=== PATIENT | female | born 1970 | race Native Hawaiian/Other Pacific Islander ===

== ENCOUNTER 2018-09-14 16:46 | Outpatient (CLI) | payer BC ==
[~2018-09-14 16:46] MED LIST: BYDUREON2 MG SC; CYCL10TA35 PO; GLIM2TAB PO; PANT40TA PO; TRAM50TA PO
== END 2018-09-14 21:49 | disposition home or self-care (01) ==
LOC: LABW 16:46
DX: R10.9 Unspecified abdominal pain (principal); R19.7 Diarrhea, unspecified; R11.2 Nausea with vomiting, unspecified
CPT/HCPCS: 87324; 87338; 87449; 87507

== ENCOUNTER 2018-09-27 13:00 | Outpatient (CLI) | payer BC ==
[~2018-09-27] VITALS: Ht 165.1 cm; Wt 154.7 kg
[2018-09-27 13:10] VITALS: BP 144/69; TEMP 98.2
== END 2018-09-27 15:33 | disposition home or self-care (01) ==
LOC: INF 13:00
DX: E88.09 Other disorders of plasma-protein metabolism, not elsewhere classified (principal)
CPT/HCPCS: 96365; 96366; P9047

== ENCOUNTER 2018-09-28 10:52 | Outpatient (CLI) | payer BC ==
[~2018-09-28] VITALS: Ht 165.1 cm; Wt 154.7 kg
[2018-09-28 10:55] VITALS: BP 129/57; TEMP 98.8
== END 2018-09-28 12:30 | disposition home or self-care (01) ==
LOC: INF 10:52
DX: E88.09 Other disorders of plasma-protein metabolism, not elsewhere classified (principal)
CPT/HCPCS: 96365; P9047

== ENCOUNTER 2019-01-14 10:54 | Outpatient (CLI) | payer BC | END 2019-01-14 20:52 | disposition home or self-care (01) | LOC: US 10:54 | DX: M79.641 Pain in right hand (principal); R60.9 Edema, unspecified ==

== ENCOUNTER 2020-06-18 10:22 | Outpatient (CLI) | payer BC | END 2020-06-18 20:26 | disposition home or self-care (01) | LOC: US 10:22 | PROVIDERS: ATTEND Nurse Practitioner Family | DX: R18.8 Other ascites (principal) | CPT/HCPCS: 36415; 85610; 85730 ==

== ENCOUNTER 2020-07-09 09:23 | Outpatient (CLI) | payer BC ==
[~2020-07-09] VITALS: Ht 165.1 cm; Wt 163.7 kg
[2020-07-09 09:48] LABS: PLATELET COUNT 59 K/uL (152-353)
[2020-07-09 09:59] LABS: POTASSIUM 4.2 mmol/L (3.6-5.2)
[2020-07-09 10:06] LABS: PARTIAL THROMBOPLASTIN TIME 24.2 SECONDS (24.5-33.6)
== END 2020-07-09 22:00 | disposition home or self-care (01) ==
LOC: US 09:23 → LAB 09:23 → INF 09:23 → US 11:00 → INF 22:00
PROVIDERS: Internal Medicine Gastroenterology; ATTEND Internal Medicine
DX: R18.8 Other ascites (principal); K74.69 Other cirrhosis of liver
CPT/HCPCS: 36415; 80053; 85027; 85610; 85730; 96365; 96366; P9047

== ENCOUNTER 2020-08-02 15:13 | Outpatient (CLI) | payer BC ==
[2020-08-15 20:41] LABS: PLATELET COUNT 50 K/uL (152-353)
[2020-08-15 20:43] LABS: POTASSIUM 3.8 mmol/L (3.6-5.2)
== END 2020-08-02 16:15 | disposition home or self-care (01) ==
LOC: LABW 15:13
PROVIDERS: ATTEND Internal Medicine
DX: I12.9 Hypertensive chronic kidney disease with stage 1 through stage 4 chronic kidney disease, or unspecified chronic kidney disease (principal); N18.9 Chronic kidney disease, unspecified; E11.9 Type 2 diabetes mellitus without complications; E78.49 Other hyperlipidemia
CPT/HCPCS: 36415; 80061; 80069; 82043; 82570; 83036; 85027

== ENCOUNTER 2020-08-10 16:44 | Outpatient (CLI) | payer BC ==
[2020-08-18 10:50] LABS: PLATELET COUNT 49 K/uL (152-353)
[2020-08-18 11:10] LABS: POTASSIUM 3.9 mmol/L (3.6-5.2)
== END 2020-08-10 23:59 | disposition home or self-care (01) ==
LOC: LABW 16:44
PROVIDERS: ATTEND Internal Medicine Gastroenterology
DX: K74.69 Other cirrhosis of liver (principal); K75.81 Nonalcoholic steatohepatitis (NASH); R18.8 Other ascites
CPT/HCPCS: 36415; 80053; 82140; 85027

== ENCOUNTER 2020-08-27 16:42 | Emergency (ER) | payer BC ==
[~2020-08-27] VITALS: Ht 165.1 cm; Wt 154.2 kg
[2020-08-27 17:37] LABS: PLATELET COUNT 78 K/uL (152-353)
[2020-08-27 17:49] LABS: POTASSIUM 4.6 mmol/L (3.6-5.2); SODIUM 138 mmol/L (136-145)
[2020-08-27 17:58] LABS: PARTIAL THROMBOPLASTIN TIME 29.4 SECONDS (24.5-33.6)
[2020-08-27 21:43] VITALS: BP 120/51; TEMP 99
== END 2020-08-28 00:55 | disposition short-term general hospital (02) ==
LOC: ED 16:42
PROVIDERS: Emergency Medicine
DX: K74.69 Other cirrhosis of liver (principal); R18.8 Other ascites; N28.9 Disorder of kidney and ureter, unspecified; U07.1 COVID-19; Z98.890 Other specified postprocedural states
CPT/HCPCS: 36415; 80053; 82140; 82150; 83690; 83880; 84484; 85027; 85610; 85730; 87635; 93005; 96374; 96375; 96376; 99284; J2270; J2405; U0003

== ENCOUNTER 2020-09-18 13:04 | Outpatient (CLI) | payer BC | END 2020-09-18 20:01 | disposition home or self-care (01) | LOC: LABW 13:04 | PROVIDERS: ATTEND Internal Medicine Gastroenterology | DX: K74.69 Other cirrhosis of liver (principal); K75.81 Nonalcoholic steatohepatitis (NASH) | CPT/HCPCS: 36415; 80076 ==

== ENCOUNTER 2020-09-23 08:02 | Outpatient (CLI) | payer BC ==
[~2020-09-23] VITALS: Ht 165.1 cm; Wt 148.8 kg
[2020-09-23 09:02] LABS: PARTIAL THROMBOPLASTIN TIME 28.8 SECONDS (24.5-33.6)
== END 2020-09-23 18:54 | disposition home or self-care (01) ==
LOC: LAB 08:02 → INF 08:02 → US 08:02 → INF 18:54
PROVIDERS: Internal Medicine Gastroenterology; ATTEND Internal Medicine
DX: R18.8 Other ascites (principal)
CPT/HCPCS: 36415; 85610; 85730; 96365; 96366; P9047

== ENCOUNTER 2020-10-27 15:03 | Outpatient (CLI) | payer BC ==
[~2020-10-27] VITALS: Ht 33 cm; Wt 0.5 kg
[2020-10-27 15:31] LABS: PLATELET COUNT 63 K/uL (152-353)
[2020-10-27 16:24] LABS: PARTIAL THROMBOPLASTIN TIME 27.2 SECONDS (24.5-33.6)
== END 2020-10-27 19:06 | disposition home or self-care (01) ==
LOC: INF 15:03 → US 15:03 → INF 19:06
PROVIDERS: ATTEND Internal Medicine Gastroenterology
DX: R18.8 Other ascites (principal); K21.00 Gastro-esophageal reflux disease with esophagitis, without bleeding; I85.00 Esophageal varices without bleeding; Z79.899 Other long term (current) drug therapy
CPT/HCPCS: 80053; 82140; 83036; 84100; 84443; 84550; 85027; 85610; 85730; 96365; 96366; P9047

== ENCOUNTER 2020-11-12 08:02 | Outpatient (CLI) | payer BC ==
[~2020-11-12] VITALS: Ht 152.4 cm; Wt 142.9 kg
== END 2020-11-12 13:00 ==
LOC: INF 08:02
PROVIDERS: ATTEND Internal Medicine
DX: L03.116 Cellulitis of left lower limb (principal); L03.115 Cellulitis of right lower limb
CPT/HCPCS: 96365; J0744

== ENCOUNTER 2020-11-13 13:04 | Outpatient (CLI) | payer BC ==
[~2020-11-13] VITALS: Ht 152.4 cm; Wt 142.9 kg
== END 2020-11-13 19:07 | disposition home or self-care (01) ==
LOC: INF 13:04
PROVIDERS: ATTEND Internal Medicine
DX: L03.116 Cellulitis of left lower limb (principal); L03.115 Cellulitis of right lower limb
CPT/HCPCS: 96365; J0744

== ENCOUNTER 2020-11-14 12:56 | Outpatient (CLI) | payer BC ==
[~2020-11-14] VITALS: Ht 152.4 cm; Wt 142.9 kg
== END 2020-11-14 19:04 | disposition home or self-care (01) ==
LOC: INF 12:56
PROVIDERS: ATTEND Internal Medicine
DX: L03.116 Cellulitis of left lower limb (principal); L03.115 Cellulitis of right lower limb
CPT/HCPCS: 96365; J0744

== ENCOUNTER 2020-11-15 12:46 | Outpatient (CLI) | payer BC ==
[2020-11-16] MEDS ORDERED: FURO40TA93 PO (20:21)
[2020-11-16] MEDS ORDERED: SPIRONOLACT50 MG PO (20:21)
[2020-11-16] MEDS ORDERED: CARV6.25 PO (20:22)
[2020-11-16] MEDS ORDERED: XIFAXAN550 MG PO (20:24)
[2020-11-16] MEDS ORDERED: FAMOTIDINE40 MG PO (20:27)
== END 2020-11-15 19:02 | disposition home or self-care (01) ==
LOC: INF 12:46
PROVIDERS: ATTEND Internal Medicine
DX: L03.116 Cellulitis of left lower limb (principal); L03.115 Cellulitis of right lower limb
CPT/HCPCS: 96365; J0744

== ENCOUNTER 2020-11-16 13:17 | Inpatient (IN) | payer BC ==
[~2020-11-16] VITALS: Ht 165.1 cm; Wt 156.7 kg
[2020-11-16 16:29] LABS: PLATELET COUNT 66 K/uL (152-353)
[2020-11-16 16:37] LABS: POTASSIUM 4.2 mmol/L (3.6-5.2)
[2020-11-16 17:04] VITALS: BP 117/36; TEMP 97.3; Ht 165.1 cm; Wt 156.7 kg
[2020-11-16 20:12] VITALS: BP 94/39; TEMP 97.8
[2020-11-16] MEDS ORDERED: FURO40TA93 PO (20:21)
[2020-11-16] MEDS ORDERED: SPIRONOLACT50 MG PO (20:21)
[2020-11-16] MEDS ORDERED: CARV6.25 PO (20:22)
[2020-11-16] MEDS ORDERED: XIFAXAN550 MG PO (20:24)
[2020-11-16] MEDS ORDERED: FAMOTIDINE40 MG PO (20:27)
[2020-11-17] VITALS: BP 99/33; TEMP 97.6
[2020-11-17 04:00] VITALS: BP 96/38; TEMP 98.5
[2020-11-17 05:52] LABS: POTASSIUM 4.7 mmol/L (3.6-5.2)
[2020-11-17 06:27] LABS: PLATELET COUNT 46 K/uL (152-353)
[2020-11-17 08:00] VITALS: BP 96/37; TEMP 98.2
[2020-11-17 12:00] VITALS: BP 106/49; TEMP 98
[2020-11-17 16:00] VITALS: BP 101/41; TEMP 98.2
[2020-11-17 20:23] VITALS: BP 104/54; TEMP 97.7
[2020-11-18 00:18] VITALS: BP 95/35; TEMP 97.9
[2020-11-18 04:27] VITALS: BP 103/40; TEMP 98.2
[2020-11-18 05:32] LABS: PLATELET COUNT 53 K/uL (152-353)
[2020-11-18 05:51] LABS: POTASSIUM 4.5 mmol/L (3.6-5.2)
[2020-11-18 08:00] VITALS: BP 102/49; TEMP 98.3
[2020-11-18 12:00] VITALS: BP 100/37; TEMP 98.3
== END 2020-11-18 17:01 | disposition home or self-care (01) | DRG 602 ==
LOC: INF 13:17 → MED/SURG 14:20
PROVIDERS: ADMIT Internal Medicine; ATTEND Internal Medicine
DX: L03.116 Cellulitis of left lower limb (principal); N18.6 End stage renal disease; D61.818 Other pancytopenia; I12.0 Hypertensive chronic kidney disease with stage 5 chronic kidney disease or end stage renal disease; L03.115 Cellulitis of right lower limb; B96.1 Klebsiella pneumoniae [K. pneumoniae] as the cause of diseases classified elsewhere; B95.7 Other staphylococcus as the cause of diseases classified elsewhere; K76.89 Other specified diseases of liver; K21.9 Gastro-esophageal reflux disease without esophagitis; I10 Essential (primary) hypertension; E11.22 Type 2 diabetes mellitus with diabetic chronic kidney disease; M79.7 Fibromyalgia; I45.6 Pre-excitation syndrome; K58.8 Other irritable bowel syndrome; M06.8A Other specified rheumatoid arthritis, other specified site
CPT/HCPCS: 36415; 80053; 81000; 82607; 82728; 82746; 83540; 84100; 85008; 85027; 87040; 87635; 96365; J0744; J2405; U0003

== ENCOUNTER 2020-12-09 08:07 | Outpatient (CLI) | payer BC ==
[~2020-12-09 08:07] MED LIST changes: +CARV6.25 PO; +FAMOTIDINE40 MG PO; +FURO40TA93 PO; +SPIRONOLACT50 MG PO; +XIFAXAN550 MG PO
[2020-12-09 08:59] LABS: POTASSIUM 3.3 mmol/L (3.6-5.2)
[2020-12-09 09:02] LABS: PARTIAL THROMBOPLASTIN TIME 24.4 SECONDS (24.5-33.6)
[2020-12-09 09:04] LABS: PLATELET COUNT 47 K/uL (152-353)
== END 2020-12-09 19:14 | disposition home or self-care (01) ==
LOC: US 08:07
PROVIDERS: ATTEND Internal Medicine Gastroenterology
DX: R18.8 Other ascites (principal); D63.1 Anemia in chronic kidney disease; N18.4 Chronic kidney disease, stage 4 (severe); R80.9 Proteinuria, unspecified; N25.81 Secondary hyperparathyroidism of renal origin; E55.9 Vitamin D deficiency, unspecified; Z79.899 Other long term (current) drug therapy; I12.9 Hypertensive chronic kidney disease with stage 1 through stage 4 chronic kidney disease, or unspecified chronic kidney disease
CPT/HCPCS: 36415; 80053; 80074; 81000; 82306; 82570; 82728; 83036; 83516; 83540; 83550; 83970; 84155; 84165; 85027; 85610; 85730; 86160; 86255; 86592; 86701; 86702; 87389

== ENCOUNTER 2020-12-23 09:17 | Outpatient (CLI) | payer BC ==
[~2020-12-23] VITALS: Ht 152.4 cm; Wt 142.9 kg
[2020-12-23 10:01] LABS: PLATELET COUNT 44 K/uL (152-353)
[2020-12-23 10:17] LABS: POTASSIUM 3.8 mmol/L (3.6-5.2)
[2020-12-23 10:19] LABS: PARTIAL THROMBOPLASTIN TIME 28.3 SECONDS (24.5-33.6)
== END 2020-12-23 20:41 | disposition home or self-care (01) ==
LOC: US 09:17 → INF 09:17 → US 09:30 → INF 20:41
PROVIDERS: ATTEND Internal Medicine Gastroenterology
DX: R18.8 Other ascites (principal); D63.1 Anemia in chronic kidney disease; N18.4 Chronic kidney disease, stage 4 (severe); I10 Essential (primary) hypertension
CPT/HCPCS: 36415; 80053; 85027; 85610; 85730; P9047

== ENCOUNTER 2021-02-17 08:00 | Outpatient (CLI) | payer BC ==
[~2021-02-17] VITALS: Ht 152.4 cm; Wt 142.8 kg
[2021-02-17 08:46] LABS: PARTIAL THROMBOPLASTIN TIME 29.8 SECONDS (24.5-33.6)
== END 2021-02-17 19:55 | disposition home or self-care (01) ==
LOC: US 08:00
PROVIDERS: ATTEND Internal Medicine Gastroenterology
DX: R18.8 Other ascites (principal); K74.69 Other cirrhosis of liver
CPT/HCPCS: 36415; 85610; 85730; 96365; 96366; P9047

== ENCOUNTER 2021-03-04 17:42 | Emergency (ER) | payer BC ==
[~2021-03-04] VITALS: Ht 152.4 cm; Wt 142.4 kg
[2021-03-04 18:31] LABS: POTASSIUM 5.4 mmol/L (3.6-5.2)
[2021-03-04 18:34] LABS: PLATELET COUNT 52 K/uL (152-353)
[2021-03-05 08:15] LABS: PLATELET COUNT 49 K/uL (152-353)
[2021-03-05 08:36] LABS: POTASSIUM 6.1 mmol/L (3.6-5.2)
[2021-03-05 12:00] VITALS: TEMP 97.8
[2021-03-05 17:47] VITALS: BP 111/42
== END 2021-03-05 17:57 | disposition home or self-care (01) ==
LOC: ED 17:42
PROVIDERS: Emergency Medicine
PROC: 0T9B70Z Drainage of Bladder with Drainage Device, Via Natural or Artificial Opening (ICD-10-PCS; principal; 2021-03-04)
PROC: 30233N1 Transfusion of Nonautologous Red Blood Cells into Peripheral Vein, Percutaneous Approach (ICD-10-PCS; 2021-03-04)
DX: N17.8 Other acute kidney failure (principal); L03.116 Cellulitis of left lower limb; L03.115 Cellulitis of right lower limb; A41.9 Sepsis, unspecified organism; D64.89 Other specified anemias; E66.01 Morbid (severe) obesity due to excess calories; Z11.52 Encounter for screening for COVID-19
CPT/HCPCS: 36415; 36430; 36600; 51702; 80053; 81000; 82805; 82948; 83605; 83880; 84484; 85007; 85027; 86850; 86900; 86901; 86922; 87040; 87077; 87185; 87186; 87205; 87635; 93005; 96360; 96361; 96365; 96366; 99285; J1815; J2543; J3370; J3490; P9016; U0003

== ENCOUNTER 2021-04-02 15:46 | Outpatient (CLI) | payer BC | END 2021-04-02 20:05 | disposition home or self-care (01) | LOC: LABW 15:46 → US 15:46 | PROVIDERS: ATTEND Nurse Practitioner Family | DX: R22.42 Localized swelling, mass and lump, left lower limb (principal); M79.605 Pain in left leg; K74.60 Unspecified cirrhosis of liver | CPT/HCPCS: 82140 ==

== ENCOUNTER 2021-04-05 15:13 | Outpatient (CLI) | payer BC ==
[2021-04-05] VITALS (7 sets, daily range): BP systolic 85–129; BP diastolic 33–86; TEMP 97.6–98.2
[2021-04-05 15:39] LABS: PLATELET COUNT 48 K/uL (152-353)
== END 2021-04-05 18:56 | disposition home or self-care (01) ==
LOC: INF 15:13
PROVIDERS: Internal Medicine Nephrology; ATTEND Internal Medicine Endocrinology, Diabetes & Metabolism
PROC: 30233N1 Transfusion of Nonautologous Red Blood Cells into Peripheral Vein, Percutaneous Approach (ICD-10-PCS; principal; 2021-04-05)
DX: D64.89 Other specified anemias (principal)
CPT/HCPCS: 36430; 85027; 86850; 86900; 86901; 86922; P9016

== ENCOUNTER 2021-04-20 12:03 | Outpatient (CLI) | payer BC ==
[2021-04-20 12:53] LABS: POTASSIUM 3.4 mmol/L (3.6-5.2)
[2021-04-20 13:13] LABS: PLATELET COUNT 57 K/uL (152-353)
== END 2021-04-20 18:59 | disposition home or self-care (01) ==
LOC: US 12:03
PROVIDERS: ATTEND Student in an Organized Health Care Education/Training Program
DX: M79.605 Pain in left leg (principal); M79.604 Pain in right leg; R22.43 Localized swelling, mass and lump, lower limb, bilateral; E11.65 Type 2 diabetes mellitus with hyperglycemia
CPT/HCPCS: 36415; 80053; 83036; 85027; 85379

== ENCOUNTER 2021-04-23 11:03 | Outpatient (CLI) | payer BC ==
[~2021-04-23] VITALS: Ht 167.6 cm; Wt 138.3 kg
[2021-04-23 12:07] LABS: PLATELET COUNT 68 K/uL (152-353)
[2021-04-23 12:23] LABS: POTASSIUM 4.6 mmol/L (3.6-5.2)
[2021-04-23 14:47] VITALS: BP 104/38; TEMP 98.4
[2021-04-23 15:05] VITALS: BP 104/38; TEMP 98.2
[2021-04-23 16:15] VITALS: BP 108/42; TEMP 98.3
== END 2021-04-23 21:43 | disposition home or self-care (01) ==
LOC: INF 11:03
PROVIDERS: ATTEND Internal Medicine
PROC: 30233N1 Transfusion of Nonautologous Red Blood Cells into Peripheral Vein, Percutaneous Approach (ICD-10-PCS; principal; 2021-04-23)
DX: D64.9 Anemia, unspecified (principal); E88.09 Other disorders of plasma-protein metabolism, not elsewhere classified
CPT/HCPCS: 36430; 36591; 80053; 85008; 85014; 85018; 85027; 86850; 86900; 86901; 86922; 96365; P9016; P9047

== ENCOUNTER 2021-04-24 12:45 | Outpatient (CLI) | payer BC ==
[~2021-04-24] VITALS: Ht 33 cm; Wt 0.5 kg
== END 2021-04-24 19:24 | disposition home or self-care (01) ==
LOC: INF 12:45
PROVIDERS: ATTEND Internal Medicine
DX: D64.9 Anemia, unspecified (principal)
CPT/HCPCS: 96365; P9047

== ENCOUNTER 2021-04-25 14:58 | Outpatient (CLI) | payer BC | END 2021-04-25 20:41 | disposition home or self-care (01) | LOC: INF 14:58 | PROVIDERS: ATTEND Internal Medicine | DX: D64.9 Anemia, unspecified (principal); E88.09 Other disorders of plasma-protein metabolism, not elsewhere classified | CPT/HCPCS: 96365; P9047 ==

== ENCOUNTER 2021-04-26 14:02 | Outpatient (CLI) | payer BC ==
[~2021-04-26] VITALS: Ht 152.4 cm; Wt 117.9 kg
== END 2021-04-26 20:13 | disposition home or self-care (01) ==
LOC: INF 14:02
PROVIDERS: ATTEND Internal Medicine
DX: D64.9 Anemia, unspecified (principal); E88.09 Other disorders of plasma-protein metabolism, not elsewhere classified
CPT/HCPCS: 96365; P9047

== ENCOUNTER 2021-04-27 11:59 | Outpatient (CLI) | payer BC ==
[~2021-04-27] VITALS: Ht 167.6 cm; Wt 133.8 kg
[2021-04-27 13:15] LABS: POTASSIUM 3.7 mmol/L (3.6-5.2)
[2021-04-27 15:59] LABS: PLATELET COUNT 41 K/uL (152-353)
== END 2021-04-27 19:03 | disposition home or self-care (01) ==
LOC: INF 11:59
PROVIDERS: ATTEND Internal Medicine
DX: D64.9 Anemia, unspecified (principal); E88.09 Other disorders of plasma-protein metabolism, not elsewhere classified
CPT/HCPCS: 36415; 80053; 85027; 96365; P9047

== ENCOUNTER 2021-04-30 11:39 | Outpatient (CLI) | payer BC ==
[~2021-04-30] VITALS: Ht 167.6 cm; Wt 133.8 kg
[2021-04-30 12:35] LABS: POTASSIUM 3.6 mmol/L (3.6-5.2)
[2021-04-30 12:52] LABS: PLATELET COUNT 47 K/uL (152-353)
== END 2021-04-30 19:37 | disposition home or self-care (01) ==
LOC: INF 11:39
PROVIDERS: ATTEND Internal Medicine Endocrinology, Diabetes & Metabolism
DX: D64.9 Anemia, unspecified (principal); E88.09 Other disorders of plasma-protein metabolism, not elsewhere classified
CPT/HCPCS: 36415; 80053; 85027; 86922; 96365; P9047

== ENCOUNTER 2021-05-01 12:51 | Observation (INO) | payer BC ==
[~2021-05-01] VITALS: Ht 167.6 cm; Wt 132.5 kg
[2021-05-01] VITALS (7 sets, daily range): BP systolic 80–112; BP diastolic 22–59; TEMP 97.7–99.1; Ht 167.6 cm; Wt 132.5 kg
[2021-05-01 14:04] LABS: PLATELET COUNT 44 K/uL (152-353); POTASSIUM 3.4 mmol/L (3.6-5.2)
[2021-05-02] VITALS (10 sets, daily range): BP systolic 77–96; BP diastolic 29–56; TEMP 98.3–99.5
[2021-05-02 09:17] LABS: PLATELET COUNT 35 K/uL (152-353)
[2021-05-02] MEDS ORDERED: TRAMADOL HYDROC50 MG PO (09:21)
[2021-05-02] MEDS ORDERED: XIFAXAN550 MG PO (09:23)
[2021-05-02] MEDS ORDERED: MIDODRINE5 MG PO (09:24)
[2021-05-02 09:25] LABS: POTASSIUM 3.8 mmol/L (3.6-5.2)
[2021-05-02] MEDS ORDERED: APIX1TAB PO (09:25)
[2021-05-02] MEDS ORDERED: HUMALOG KW200 UNIT/M SC (09:27)
[2021-05-02] MEDS ORDERED: TOUJEO MAX300 UNIT/M SC (09:29)
[2021-05-02] MEDS ORDERED: ONDANSETRON HYDR4 MG PO (09:31)
[2021-05-02] MEDS ORDERED: PROMETHAZINE HY25 MG PO (09:33)
== END 2021-05-02 11:26 | disposition home or self-care (01) ==
LOC: ED 12:51 → MED/SURG 15:00
PROVIDERS: ADMIT Emergency Medicine; ATTEND Internal Medicine Endocrinology, Diabetes & Metabolism
PROC: 30233N1 Transfusion of Nonautologous Red Blood Cells into Peripheral Vein, Percutaneous Approach (ICD-10-PCS; principal; 2021-05-01)
PROC: 30233N1 Transfusion of Nonautologous Red Blood Cells into Peripheral Vein, Percutaneous Approach (ICD-10-PCS; 2021-05-02)
DX: D64.89 Other specified anemias (principal); R41.82 Altered mental status, unspecified; I95.89 Other hypotension; K72.10 Chronic hepatic failure without coma; M15.8 Other polyosteoarthritis; E66.01 Morbid (severe) obesity due to excess calories; Z79.4 Long term (current) use of insulin; I45.6 Pre-excitation syndrome; M79.7 Fibromyalgia; E11.22 Type 2 diabetes mellitus with diabetic chronic kidney disease; I12.0 Hypertensive chronic kidney disease with stage 5 chronic kidney disease or end stage renal disease; N18.6 End stage renal disease; Z99.2 Dependence on renal dialysis; L89.323 Pressure ulcer of left buttock, stage 3; L89.313 Pressure ulcer of right buttock, stage 3
CPT/HCPCS: 36415; 80048; 80053; 83605; 85027; 86850; 86900; 86901; 86922; 87635; 99220; 99283; G0378; P9016; U0003